=== PATIENT | male | born 1955 | race Hispanic/Latino ===

== ENCOUNTER 2021-11-09 07:22 | Day surgery (SDC) | payer MEDICARE ==
[~2021-11-09 07:22] MED LIST: LACTATED RINGERS 1,000 ML IV SCH; MIDAZOLAM 2 MG/2 ML INJ IV NR; WATER FOR IRRIG STERILE 1,500 ML BOTTLE IR ONE; WATER FOR IRRIG STERILE 2000 ML IR ONE
[2021-11-09] MEDS ORDERED: ceFAZolin/Water 2 GM/20 ML 2 GM/20 ML SYRINGE IV ONE (08:17)
[2021-11-09] MEDS ORDERED: HYDROcodone/ACETAMINOPHEN 5-325 MG TAB PO PRN (08:35)
[2021-11-09] MEDS ORDERED: fentaNYL 100 MCG/2 ML INJ IV PRN (08:35)
--- NOTE | 2021-11-09 08:35 | Anesthesia Day of Surgery ---
Anesthesia Day of Surgery - Day of Surgery Patient Examined: Yes Patient H&P Reviewed: Yes Patient is NPO: Yes
--- NOTE | 2021-11-09 08:35 | Anesthesia Consultation ---
Anesthesia Consult and Med Hx Date of service: 11/09/21 - Airway Anesthetic Teeth Evaluation: Good ROM Head & Neck: Adequate Mental/Hyoid Distance: Adequate Mallampati Class: Class II Intubation Access Assessment: Probably Good - Pre-Operative Health Status ASA Pre-Surgery Classification: ASA2 Proposed Anesthetic Plan: General - Pulmonary Hx Smoking: No Hx Respiratory Symptoms: No Hx Sleep Apnea: Yes (dx 20yrs ago; no CPAP) - Cardiovascular System Hx Hypertension: No - Central Nervous System CVA: No - Endocrine Hx Renal Disease: No Hx Liver Disease: No Hx Insulin Dependent Diabetes: No Hx Non-Insulin Dependent Diabetes: No Hx Thyroid Disease: No - Additional Comments Anesthesia Medical History Comments: No hx anesthetic complications.
[2021-11-09] MEDS ORDERED: ceFAZolin/STERILE WATER 2 GM/20 ML SYRINGE IV NR (09:00)
[2021-11-09] MEDS ORDERED: LIDOCAINE MPF (2%) 20 MG/1 ML VIAL 5 ML ONE (11:04)
[2021-11-09] MEDS ORDERED: fentaNYL 100 MCG/2 ML INJ ONE (11:04)
[2021-11-09] MEDS ORDERED: propofoL 200 MG/20 ML VIAL IV ONE (11:04)
[2021-11-09] MEDS ORDERED: ePHEDrine SULFATE 50 MG/1 ML INJ ONE (11:29)
[2021-11-09] MEDS ORDERED: dexAMETHasone 20 MG/5 ML VIAL ONE (11:46)
[2021-11-09] MEDS ORDERED: ONDANSETRON 4 MG/2 ML INJ ONE (11:46)
--- NOTE | 2021-11-09 12:11 | Short Stay Summary ---
Short Stay Documentation Date of service: 11/09/21 - History H&P: obtained from office - Allergies and Medications Current Medications: Allergies Sulfa (Sulfonamide Antibiotics) Allergy (Verified 11/06/21 18:17) Rash Home Medications Medication Instructions Recorded Confirmed Last Taken Type HYDROcodone/APAP 10-325 [Snyder 1 each PO Q6HR PRN 11/06/21 11/06/21 Unknown History 10/325] Tamsulosin [Flomax] 0.4 mg PO QDAY 11/06/21 11/06/21 Unknown History Active Medications Hydrocodone Bitart/Acetaminophen (Hydrocodone/Acetaminophen 5-325 Mg Tab) 2 each PO ONCE PRN PRN Reason: Pain, Moderate (4-6) Stop: 11/09/21 23:59 Fentanyl (Fentanyl 100 Mcg/2 Ml Inj) 50 mcg IV Q5MIN PRN PRN Reason: Pain , Severe (7-10) Stop: 11/09/21 23:59 Lactated Ringer's (Lactated Ringers) 1,000 mls @ 100 mls/hr IV DIRECT ION Stop: 11/09/21 23:59 Midazolam HCl (Midazolam 2 Mg/2 Ml Inj) 2 mg IV PREOP NR Stop: 11/09/21 23:59 - Brief post op/procedure progress note Date of procedure: 11/09/21 Pre-op diagnosis: rt distal stone Post-op diagnosis: same Procedure: cysto, rt ureteroscopy basket stone, stent with external string Anesthesia: VAHE Surgeon: TINY BELLAMY Condition: stable - Hospital course Hospital course: emma copeland, post op info on chart - Disposition Condition at discharge: Stable Disposition: 01 HOME / SELF CARE / HOMELESS Short Stay Discharge Plan Follow up with: MONTSERRAT VIVAS JR, MD [Primary Care Provider] - 7 Days
[2021-11-09 13:01] VITALS: BP 134/79
--- NOTE | 2021-11-09 13:10 | Operative Report ---
DATE OF SURGERY: 11/09/2021 PREOPERATIVE DIAGNOSIS: Right distal ureteral stone. POSTOPERATIVE DIAGNOSIS: Right distal ureteral stone. PROCEDURES PERFORMED: Cystoscopy, bilateral retrograde pyelograms, right ureteroscopy, basket stone extraction, double-J stent (6-Chadian 24 cm with external string). SURGEON: Noman Reyes MD ANESTHESIA: General. ESTIMATED BLOOD LOSS: Minimal. FLUIDS: Crystalloid. COMPLICATIONS: No complications. INDICATIONS: This patient is a 65-year-old gentleman with history of stones in the past, seen by Dr. Vázquez in 2016. He presented to our office earlier this month with right flank pain. CT abdomen and pelvis revealed 5 mm distal stone. Discussed options, he agreed to proceed with surgical intervention. DESCRIPTION OF PROCEDURE: The patient was taken to the operative suite, placed in a supine position. After adequate general anesthesia, placed in the dorsal lithotomy position, prepped and draped in a sterile fashion. Pancystourethroscopy was performed with a 22-Chadian Storz cystoscope, no urethral or prostate abnormalities. Bladder, no tumors or stones. Bilateral retrograde pyelograms were obtained with an 8-Chadian Shabana catheter and 8 mL of contrast. No filling defects or obstruction on the left. Right side, obvious filling defect in the pelvic girdle. Two 0.35 Glidewire was placed up the right collecting system confirmed on fluoroscopic guidance. Rigid ureteroscopy was performed. A yellow stone could be appreciated. It was engaged with a Chan basket and extracted. It was sent for routine pathologic evaluation. Bladder was drained. A 6-Chadian 24 cm double-J stent was placed. Rectal exam was benign. He was extubated and taken to recovery room. TID: [id number] RECEIPT: [id number] [facility]ON
--- NOTE | 2021-11-09 14:56 | Post Anesthesia Evaluation ---
- Post Anesthesia Evaluation Patient Participated: Yes Airway Patent: Yes Stable Respiratory Function: Yes Nausea/Vomiting: No Temp > 96.8F: Yes Pain Manageable: Yes Adequeate Hydration: Yes Anesthesia Complications: No
--- NOTE | 2021-11-09 15:00 | Fluoroscopy Report ---
6 fluoroscopic images submitted Indication: Intraoperative localization Impression: 6 images of the abdomen were submitted for documentation purposes with radiology involve ment. Bilateral retrograde pyelograms with right-sided stent placement. Please refer to the operati ve note for complete details. Fluoroscopic time: 24 seconds Signer Name: Zeyad Seymour MD Signed: 11/09/2021 2:56 PM Workstation Name: [id number]
== END 2021-11-09 07:23 | disposition home or self-care (01) ==
LOC: OR 07:22
PROVIDERS: ATTEND Urology
DX: N20.1 Calculus of ureter (principal); G47.30 Sleep apnea, unspecified; Z20.822 Contact with and (suspected) exposure to COVID-19; Z79.899 Other long term (current) drug therapy; Z88.2 Allergy status to sulfonamides; Z96.642 Presence of left artificial hip joint; Z72.89 Other problems related to lifestyle; Z98.890 Other specified postprocedural states
CPT/HCPCS: 52332; 52352; 74420; C1758; C1769; C2617; J0690; J1100; J2405; J2704; J3010; J3490; J7120; Q9967; U0003; J2250